=== PATIENT | female | born 1990 | race Caucasian/White ===

== ENCOUNTER 2022-01-06 12:10 | Inpatient (IN) | payer BC ==
[2022-01-06] MEDS ORDERED: Sodium Chloride 0.9% 20 ML SDV IV PRN (12:28)
[2022-01-06] MEDS ORDERED: Carboprost Tromethamine 250 MCG/1 ML Amp IM PRN (12:28)
[2022-01-06] MEDS ORDERED: Tranexamic Acid 1,000 MG in Sodium Chloride 0.9% 100 ML IV PRN (12:28)
[2022-01-06] MEDS ORDERED: Misoprostol 200 MCG Tab PO PRN (12:28)
[2022-01-06] MEDS ORDERED: Lidocaine 1% 50 ML MDV INJECT PRN (12:28)
[2022-01-06] MEDS ORDERED: Ondansetron 4 MG/2 ML SDV IVPUSH PRN (12:28)
[2022-01-06] MEDS ORDERED: Butorphanol 1 MG/ML SDV IVPUSH PRN (12:28)
[2022-01-06] MEDS ORDERED: Sodium Chloride 0.9% 10 ML Syringe FLUSH PRN (12:28)
[2022-01-06] MEDS ORDERED: Water For Irrigation,Sterile 1,000 ML Container IRR PRN (12:28)
[2022-01-06] MEDS ORDERED: Sodium Chloride 0.9% 2.5 ML Syringe FLUSH PRN (12:28)
[2022-01-06] MEDS ORDERED: Methylergonovine 0.2 MG/1 ML Amp IM PRN (12:28)
[2022-01-06] MEDS ORDERED: Oxytocin/0.9 % Sodium Chloride 30 UNIT/500 ML BAG IV SCH ×2 (12:30→12:45)
[2022-01-06] MEDS ORDERED: Terbutaline 1 MG/ML SDV SUBCUT PRN (12:35)
[2022-01-06] MEDS ORDERED: Misoprostol 25 MCG (1/4 of 100 MCG) Tab VAG PRN (13:00)
[2022-01-06] MEDS: Lactated Ringers 1,000 ML IV SCH ×2 (13:10→22:59)
[2022-01-06 14:07] LABS: BLOOD UREA NITROGEN,BUN 8 mg/dL (7.0-18.0); CARBON DIOXIDE,CO2 20.3 mmol/L (21.0-32.0); CHLORIDE,CL 103 mmol/L (98-107); GLUCOSE RANDOM 109 mg/dL (74-106); POTASSIUM,K 3.7 mmol/L (3.5-5.1); SODIUM,NA 138 mmol/L (136-145)
[2022-01-06] MEDS ORDERED: Ropivacaine HCl/PF 100 ML ONE (22:51)
[2022-01-06] MEDS ORDERED: Ropivacaine HCl/PF 200 MG in Premix Bag 1 BAG EPIDUR SCH (23:45)
[2022-01-06] MEDS ORDERED: ePHEDrine 50 MG/ML SDV IVPUSH PRN (23:48)
[2022-01-07] MEDS: Lactated Ringers 1,000 ML IV SCH (00:44)
[2022-01-07] MEDS ORDERED: Benzocaine/Menthol 20%-0.5% Spray 78 GM Cannister TOP PRN (02:16)
[2022-01-07] MEDS ORDERED: Lanolin 100% Cream 7 GM Tube TOP PRN (02:16)
[2022-01-07] MEDS ORDERED: Witch Hazel Medicated Pads 40/Jar TOP PRN (02:16)
[2022-01-07] MEDS ORDERED: Docusate Sodium 100 MG Cap PO PRN (02:16)
[2022-01-07] MEDS ORDERED: Acetaminophen 500 MG Tab PO PRN (02:16)
[2022-01-07] MEDS ORDERED: Tranexamic Acid 1,000 MG in Sodium Chloride 0.9% 100 ML IV PRN (02:16)
[2022-01-07] MEDS ORDERED: Ibuprofen 400 MG Tab PO PRN (02:16)
[2022-01-07] MEDS ORDERED: Bisacodyl 10 MG Supp RECTAL PRN (02:16)
[2022-01-07] MEDS: Ibuprofen 800 MG Tab PO PRN ×2 (05:01→16:45)
[2022-01-07] MEDS ORDERED: Sertraline 50 MG Tab PO SCH (09:00)
[2022-01-07] MEDS: Acetaminophen 500 MG Tab PO PRN ×2 (11:52→20:13)
[2022-01-08] MEDS: Ibuprofen 800 MG Tab PO PRN (07:14)
== END 2022-01-08 10:29 | disposition home or self-care (01) | DRG 560 ==
LOC: MW.OBCHECK 12:10 → MW.OB 12:10 → MW.OBCHECK 12:28 → OBSVTOIN 01-07 01:29 → MW.OB 01-07 05:07
PROVIDERS: ADMIT Obstetrics & Gynecology; ATTEND Obstetrics & Gynecology
PROC: 10E0XZZ Delivery of Products of Conception, External Approach (ICD-10-PCS; principal; 2022-01-07)
PROC: 3E0P7VZ Introduction of Hormone into Female Reproductive, Via Natural or Artificial Opening (ICD-10-PCS; 2022-01-07)
PROC: 3E033VJ Introduction of Other Hormone into Peripheral Vein, Percutaneous Approach (ICD-10-PCS; 2022-01-07)
PROC: 10907ZC Drainage of Amniotic Fluid, Therapeutic from Products of Conception, Via Natural or Artificial Opening (ICD-10-PCS; 2022-01-07)
PROC: 3E0R3BZ Introduction of Anesthetic Agent into Spinal Canal, Percutaneous Approach (ICD-10-PCS; 2022-01-07)
PROC: 00HU33Z Insertion of Infusion Device into Spinal Canal, Percutaneous Approach (ICD-10-PCS; 2022-01-07)
DX: O13.4 Gestational [pregnancy-induced] hypertension without significant proteinuria, complicating childbirth (principal); Z3A.39 39 weeks gestation of pregnancy; Z37.0 Single live birth; Z20.822 Contact with and (suspected) exposure to COVID-19
CPT/HCPCS: 36415; 59025; 59409; 80053; 82803; 84550; 85014; 85018; 85027; 86592; 86850; 86900; 86901; A9270-GY; J2370; J2590; J2795; J7120; U0002

== ENCOUNTER 2022-01-09 23:10 | Emergency (ER) | payer BC ==
[2022-01-10] MEDS ORDERED: Sodium Chloride 0.9% 1,000 ML IV ONE (00:11)
[2022-01-10 00:47] LABS: BLOOD UREA NITROGEN,BUN 11 mg/dL (7.0-18.0); CHLORIDE,CL 102 mmol/L (98-107); GLUCOSE RANDOM 97 mg/dL (74-106); POTASSIUM,K 3.5 mmol/L (3.5-5.1); SODIUM,NA 138 mmol/L (136-145)
== END 2022-01-10 01:36 | disposition home or self-care (01) ==
LOC: MW.ED 23:10
DX: R42 Dizziness and giddiness (principal)
CPT/HCPCS: 36415; 80053; 85025; 93005; 96360; 99284; J7030

== ENCOUNTER 2023-08-14 10:57 | Emergency (ER) | payer BC ==
[2023-08-14] MEDS ORDERED: Ciprofloxacin 0.3% Ophth Soln 2.5 ML Bottle EYEBOTH STA (11:41)
== END 2023-08-14 11:57 | disposition home or self-care (01) ==
LOC: MW.ED 10:57
DX: H10.89 Other conjunctivitis (principal)
CPT/HCPCS: 99282